=== PATIENT | female | born 1955 | race Caucasian/White ===

== ENCOUNTER 2016-11-17 10:11 | Emergency (ER) | payer OTHER ==
[~2016-11-17] VITALS: Ht 152.4 cm; Wt 84.4 kg
[~2016-11-17 10:11] MED LIST: FOLVITE1 M1; LOFIBRA,TRIGLI160 MG; METHOTREXATE2.5 M2 PO; PLAVIX75 MG; PRAVACHOL80 MG; ZESTORETIC,P1 TABLE1 PO
[2016-11-17 11:16] LABS: HEMATOCRIT 42.5 % (36.0-46.0); MCH 31.5 PG (29.0-34.0); MCHC 34.6 G/DL (30.0-36.0); MCV 91.2 FL (83-99); MEAN PLAT.VOLUME 9.1 uM^3 (9.5-12.4); PLATELET COUNT 235 K/uL (156-360); RBC DIS.WIDTH-CV 11.8 % (11.8-14.6); RBC DIS.WIDTH-SD 39.4 % (39-53); RED BLOOD COUNT 4.66 M/uL (3.80-5.20); WHITE BLOOD COUNT 4.1 K/uL (4.1-10.2)
[2016-11-17 11:25] LABS: CHLORIDE 106 mEq/L (99-109); POTASSIUM 3.8 mEq/L (3.7-5.4); SODIUM 142 mEq/L (136-147)
[2016-11-17 11:27] LABS: GLUCOSE 98 mg/dL (70-99)
[2016-11-17 11:28] LABS: ANION GAP 13 MEQ/L (2-14)
[2016-11-17 11:29] LABS: TOTAL BILIRUBIN 0.5 mg/dL (0.0-1.0)
[2016-11-17 11:31] LABS: ALKALINE PHOSPHATASE 95 IU/L (3-129); GFR ESTIMATE (CALCULATED) > 59 mL/min/
[2016-11-17 11:32] LABS: UREA NITROGEN (BUN) 10 mg/dL (9-23)
[2016-11-17 11:56] LABS: ADD MIUA? YES; BILIRUBIN NEGATIVE; BLOOD NEGATIVE; COLOR YELLOW ((YELLOW)); GLUCOSE (STRIP) NEGATIVE; KETONES NEGATIVE; LEUKOCYTES SMALL; NITRITE NEGATIVE; PROTEIN (STRIP) NEGATIVE; SPECIFIC GRAVITY 1.018 (1.000-1.030); UROBILINOGEN 0.2 MG/DL (0.2-1.0)
[2016-11-17 13:01] LABS: BACTERIA NONE SEEN /HPF; EPITHELIAL CELLS RARE /HPF; MUCUS TRACE /LPF; RED BLOOD CELLS 0-5 /HPF (0-5); UCUL ADDED? NO; WHITE BLOOD CELLS 0-5 /HPF (0-5)
[2016-11-17] MEDS ORDERED: ZYRTEC10 M2 PO (13:16)
[2016-11-17] MEDS ORDERED: FLONASE16 G1 BOTH NARES (13:16)
[2016-11-17 13:30] VITALS: BP 179/89
== END 2016-11-17 13:33 | disposition home or self-care (01) ==
LOC: EME 10:11
PROVIDERS: Nurse Practitioner Family
DX: J34.89 Other specified disorders of nose and nasal sinuses (principal); R42 Dizziness and giddiness; Z86.73 Personal history of transient ischemic attack (TIA), and cerebral infarction without residual deficits; R20.2 Paresthesia of skin; I10 Essential (primary) hypertension
CPT/HCPCS: 70450; 80053; 81003; 85027; 93005; 99281; 99284